=== PATIENT | male | born 2000 | race African-American/Black ===

== ENCOUNTER 2022-03-22 19:01 | Emergency (ER) | payer OTHER ==
[~2022-03-22] VITALS: Ht 170.2 cm; Wt 67.9 kg
[2022-03-22 23:00] VITALS: BP 113/66
== END 2022-03-22 23:15 | disposition home or self-care (01) ==
LOC: M ED 19:01 → EDBD 19:01 → M ED 23:15
DX: B34.8 Other viral infections of unspecified site (principal); Z20.1 Contact with and (suspected) exposure to tuberculosis; Z20.828 Contact with and (suspected) exposure to other viral communicable diseases; F17.290 Nicotine dependence, other tobacco product, uncomplicated